=== PATIENT | female | born 1955 | race Caucasian/White ===

== ENCOUNTER → 2017-11-29 13:00 | Outpatient (CLI) | payer OTHER, SELFPAY | PROVIDERS: Family Provider Family Medicine Geriatric Medicine; PCP Family Medicine Geriatric Medicine | DX: H53.2 Diplopia (principal) | CPT/HCPCS: 36415 ==

== ENCOUNTER → 2018-01-24 15:00 | Outpatient (CLI) | payer OTHER, SELFPAY ==
[2018-01-24 17:06] LABS: Absolute Lymphocyte Count 2.14 X10^3/ul (0.83-4.51); Absolute Neutrophil Count 4.9 X10^3/uL (2.0-7.7); Basophil# 0.06 X10^3/uL; Basophil% 0.7 % (0-1); Eosinophil# 0.21 X10^3/uL; Eosinophils% 2.5 % (0-5); Hematocrit 39.4 % (37-47); Hemoglobin 13.2 g/dl (12.0-15.0); Lymphocyte # 2.14 X10^3/ul (4.0); Lymphocyte % 25.9 % (19-41); Mean Corp Hgb Conc 33.5 g/gl (32-36); Mean Corpuscular Hgb 30.4 pg (27.0-32.0); Mean Corpuscular Volume 90.8 fL (81-99); Mean Platelet Vol. 10.3 fl (6.2-12.0); Monocyte# 0.89 X10^3/uL; Monocyte% 10.8 % (0-10); Neutrophil # 4.93 X10^3/uL (2.7-7.7); Neutrophil % 59.9 % (47-70); Platelet Count 271 K/mm3 (150-450); RBC Distribution Width CV 12.8 % (11.6-14.6); RBC Distribution Width SD 42.3 fl (35.1-43.9); Red Blood Count 4.34 M/mm3 (4.2-5.4); White Blood Count 8.3 K/mm3 (4.4-11.0)
[2018-01-24 17:09] LABS: International Normalized Ratio 1.1; Prothrombin Time (Protime)PT. 13.7 SECONDS (11.7-14.9)
[2018-01-24 17:10] LABS: Partial Thromboplast Time 29.7 Seconds (24.1-36.2)
[2018-01-24 17:47] LABS: POSITIVE COUNT NO; POSITIVE DIFFERENTIAL NO; POSITIVE MORPHOLOGY NO
[2018-01-24 17:55] LABS: ALB/GLOB Ratio 1.1 RATIO (0.9-2.4); AST(SGOT) 22 U/L (15-37); Alanine Aminotransfer ALT/SGPT 27 U/L (13-56); Albumin, Serum 3.9 g/dL (3.2-5.0); Alkaline Phosphatase 98 U/L (45-117); Anion Gap 7 (5-15); BUN 23 mg/dL (7-18); BUN/Creat Ratio 26.8 RATIO (10-20); Calcium,Total 9.2 mg/dL (8.5-10.1); Chloride 106 mmol/L (98-107); Creatinine, Serum 0.86 mg/dL (0.55-1.02); EST Glomerular Filtration Rate 71 mL/min (>60); Est Glom Filt Rate - Afr Amer 85 mL/min (>60); Globulin 3.4 g/dL (2.2-4.2); Glucose 88 mg/dL (74-106); Potassium 3.7 mmol/L (3.5-5.1); Protein, Total 7.3 g/dL (6.4-8.2); Sodium Level 143 mmol/L (136-145); Thyroid Stim Hormone (TSH) 1.52 uIU/mL (0.358-3.74)
[2018-01-25 09:00] LABS: Vitamin D,25 Hydroxy 32.8 ng/mL (29.95-100.01)
[2018-01-26 09:35] LABS: Hep C Antibodies <0.1 s/co ratio (0.0-0.9)
== END ==
PROVIDERS: Family Provider Family Medicine Geriatric Medicine; PCP Family Medicine Geriatric Medicine; Visit Provider Family Medicine Geriatric Medicine
DX: E55.9 Vitamin D deficiency, unspecified (principal); R53.83 Other fatigue; Z13.89 Encounter for screening for other disorder
CPT/HCPCS: 36415; 80053; 82306; 84443; 85025; 85610; 85730; 86803

== ENCOUNTER → 2018-05-05 12:19 | Outpatient (CLI) | payer MEDICARE, BC, SELFPAY ==
--- NOTE | 2018-05-05 12:22 | BI_ITS ---
MAMMOGRAPHY - BILATERAL SCREENING REASON FOR EXAM: Female, 63 years old. Routine annual screening examination. PERTINENT HISTORY: Non-contributory. TECHNIQUE: Digital bilateral breast chriss (3D mammographic acquisition) in the CC and MLO projections. 2-D mediolateral oblique (MLO) and craniocaudad (CC) views of both breasts were obtained. CAD: Full Field Digital Mammography with Computer Added Detection was performed. COMPARISON: Comparison is made with prior study dated October 18, 2016. FINDINGS: Breast Composition: The breasts are almost entirely fatty. There are no dominant masses or suspicious calcifications. Stable appearance of the tiny nodules in the right breast. Prior ultrasound demonstrated these to be small cysts. No other significant abnormalities are identified. There has been no significant change since the prior study. BI/SCREENING MAMM (CAD), BILAT IMPRESSION: Stable bilateral screening mammogram. Yearly follow-up mammogram recommended. (A) ASSESSMENT CATEGORY: BIRADS Category 2: Benign. A letter regarding these results will be sent to the patient by the facility within 30 days. Approximately 10% of breast cancers are not detected by mammography. A normal mammogram should not delay biopsy of a clinically suspicious abnormality. [id number] Electronically Signed: Germán Tavera MD at 14:01 EDT Tel [phone], Service support ,
== END ==
PROVIDERS: Family Provider Family Medicine Geriatric Medicine; PCP Family Medicine Geriatric Medicine; Referring Provider Family Medicine Geriatric Medicine; Visit Provider Family Medicine Geriatric Medicine
DX: Z12.31 Encounter for screening mammogram for malignant neoplasm of breast (principal)
CPT/HCPCS: 77063; 77067

== ENCOUNTER → 2019-04-17 15:18 | Outpatient (CLI) | payer MEDICARE, BC, SELFPAY | PROVIDERS: Family Provider Family Medicine; PCP Family Medicine; Visit Provider Family Medicine | DX: N30.90 Cystitis, unspecified without hematuria (principal) | CPT/HCPCS: 87086; 87088; 87186 ==

== ENCOUNTER → 2019-05-07 08:53 | Outpatient (CLI) | payer MEDICARE, BC, SELFPAY ==
[2019-05-07 09:13] LABS: Absolute Lymphocyte Count 2.45 X10^3/uL (0.83-4.51); Absolute Neutrophil Count 4.6 X10^3/uL (2.0-7.7); Basophil# 0.07 X10^3/uL; Basophil% 0.9 % (0-1); Eosinophil# 0.22 X10^3/uL; Eosinophils% 2.7 % (0-5); Hematocrit 44.5 % (37-47); Hemoglobin 14.8 g/dL (12.0-15.0); Lymphocyte # 2.45 X10^3/ul (4.0); Mean Corp Hgb Conc 33.3 g/dL (32-36); Mean Corpuscular Hgb 29.8 pg (27.0-32.0); Mean Corpuscular Volume 89.7 fL (81-99); Mean Platelet Vol. 9.6 fl (6.2-12.0); Monocyte# 0.82 X10^3/uL; NRBC Flagged by Analyzer 0 % (0-5); Neutrophil # 4.59 X10^3/uL (2.7-7.7); Neutrophil % 56.3 % (47-70); Platelet Count 307 K/mm3 (150-450); RBC Distribution Width CV 12.7 % (11.6-14.6); RBC Distribution Width SD 41.5 fl (35.1-43.9); Red Blood Count 4.96 M/mm3 (4.2-5.4); White Blood Count 8.2 K/mm3 (4.4-11.0)
[2019-05-07 09:42] LABS: AST(SGOT) 17 U/L (15-37); Alanine Aminotransfer ALT/SGPT 23 U/L (13-56); Alkaline Phosphatase 112 U/L (45-117); Anion Gap 5 (5-15); BUN 20 mg/dL (7-18); BUN/Creat Ratio 26.6 RATIO (10-20); Calcium,Total 9.3 mg/dL (8.5-10.1); Chloride 107 mmol/L (98-107); Cholesterol 211 mg/dL (200); Creatinine, Serum 0.75 mg/dL (0.55-1.02); EST Glomerular Filtration Rate 82 mL/min (>60); Est Glom Filt Rate - Afr Amer 99 mL/min (>60); Globulin 3.9 g/dL (2.2-4.2); Glucose 80 mg/dL (74-106); High Density Lipoprotein 71 mg/dL; Potassium 4.2 mmol/L (3.5-5.1); Protein, Total 7.9 g/dL (6.4-8.2); Sodium Level 141 mmol/L (136-145); Triglycerides 94 mg/dL; Very Low Density Lipoprotein 19 mg/dL (5-40)
[2019-05-07 09:45] LABS: Vitamin D,25 Hydroxy 36.6 ng/mL (29.95-100.01)
== END ==
PROVIDERS: Family Provider Family Medicine; PCP Family Medicine; Referring Provider Family Medicine; Visit Provider Family Medicine
DX: Z00.00 Encounter for general adult medical examination without abnormal findings (principal); E78.5 Hyperlipidemia, unspecified; E55.9 Vitamin D deficiency, unspecified
CPT/HCPCS: 36415; 80053; 80061; 82306; 85025

== ENCOUNTER 2020-09-25 11:04 | Outpatient (RCR) | payer MEDICARE, BC, SELFPAY ==
[2020-09-25] MEDS: COVID-19 VACC, MRNA(PFIZER)/PF 30 MCG/0.3 ML SYRINGE IM (11:50)
[2020-10-16] MEDS: COVID-19 VACC, MRNA(PFIZER)/PF 30 MCG/0.3 ML SYRINGE IM (11:46)
== END 2020-09-25 23:59 ==
LOC: IMMUN 11:04
PROVIDERS: PCP Family Medicine; Visit Provider Family Medicine
DX: Z23 Encounter for immunization (principal)
CPT/HCPCS: 0001A; 0002A; 91300

== ENCOUNTER 2021-08-18 17:33 | Emergency (ER) | payer MEDICARE, BC, SELFPAY ==
[2021-08-18 17:33] VITALS: BP 215/90; PULSE 103; RESP 20; TEMP 36.8; O2SAT 98; BMI 25.4
--- NOTE | 2021-08-18 18:06 | EKG12_ITS ---
Test Reason : HYPERTENSON Blood Pressure : / mmHG Vent. Rate : 069 BPM Atrial Rate : 069 BPM P-R Int : 152 ms QRS Dur : 084 ms QT Int : 374 ms P-R-T Axes : 048 -36 032 degrees QTc Int : 400 ms Normal sinus rhythm Left axis deviation Abnormal ECG Confirmed by SUKHJINDER EVANS, BONNIE ([id number]), editor department RONALD KOWALSKI ([id number]) on 08/19/2021 9:45:19 AM Referred By: MILO Confirmed By:BONNIE SLAUGHTER MD
--- NOTE | 2021-08-18 18:06 | EDS_ITS ---
HPI History of Present Illness Chief Complaint: Hypertension Informant: patient Onset/Context/Timing Onset: Days (2-3) Timing: Continuous and Intermittent (See below) Quality: Fluttering Location: Chest Current Severity: Mild Maximum Severity: Moderate Worsened by: Nothing Relieved by: Nothing Narrative Narrative: 66-year-old healthy female presents with fluttering in her chest. She states it has basically been continuously intermittent for the last couple days. Initially she states it started with about 12 hours worth of heartburn feeling in her chest. She has not had that since then, but the palpitations have been continuous. She checked her blood pressure today and it was about 179 systolic, prompting her to become more concerned to come to the emergency department. She denies any shortness of breath, nausea, diaphoresis, radiation of any of the discomfort she had, lightheadedness or near syncope/syncope. No history of heart problems. [facility] Medical History (Updated 08/18/21 @ 22:[address] Lele Bunn MD) Inguinal hernia Medical History no medical history no medical history Home Medications amlodipine 5 mg PO DAILY #30 tab 08/18/21 [Rx Last Taken Unknown] Allergy/AdvReac Type Severity Reaction Status Date / Time No Known Allergies Allergy Verified 08/18/21 18:30 Social History Smoking Status: Never smoker [facility] ED Constitutional Constitutional ED: Denies chills or fever(s) Eyes Eyes: Denies change in vision or diplopia ENT ENT ED: Denies rhinorrhea or sore throat Cardiovascular Cardiovascular: Reports as per HPI, chest pain and palpitations Respiratory/Chest Respiratory/Chest: Denies cough or dyspnea Gastrointestinal Gastrointestinal: Denies abdominal pain, diarrhea, nausea or vomiting Genitourinary Genitourinary ED: Denies dysuria or hematuria Musculoskeletal Musculoskeletal: Denies back pain or neck pain Integumentary Denies abscess or rash Neurologic Neurologic: Denies headache(s), paresthesias or weakness Psychiatric Psychiatric: Denies anxiety or suicidal thoughts EXAM Physical Exam Const Vital Signs: 08/18/21 17:33 08/18/21 18:19 08/18/21 18:33 Temperature 98.3 F Temperature Source Temporal Pulse Rate 103 H Respiratory Rate 20 H Respiratory Effort Normal Non-Labored Respiratory Pattern Normal Blood Pressure 215/90 H Blood Pressure Mean 131 Pulse Ox 98 96 Oxygen Delivery Method Room Air Room Air 08/18/21 18:41 08/18/21 20:00 08/18/21 20:53 Temperature Temperature Source Pulse Rate 59 L 58 L 59 L Respiratory Rate 20 H 16 16 Respiratory Effort Respiratory Pattern Blood Pressure 177/72 H 135/80 H 162/77 H Blood Pressure Mean 107 98 105 Pulse Ox Oxygen Delivery Method 08/18/21 21:00 Temperature Temperature Source Pulse Rate 68 Respiratory Rate 19 H Respiratory Effort Respiratory Pattern Blood Pressure 134/77 H Blood Pressure Mean 96 Pulse Ox Oxygen Delivery Method Positive well nourished and well developed General Appearance ED: well developed and NAD HEENT Reports moist mucous membranes normocephalic and atraumatic Eyes PERRL and EOMs intact bilaterally Neck full ROM and supple Resp normal respiratory effort and clear to auscultation bilaterally Cardio regular rate, regular rhythm and no murmurs GI non-tender and non-distended Auscultation: normoactive bowel sounds Palpation: soft Back/Spine no CVA tenderness General Back: other FROM Extremity normal to inspection, no calf tenderness and no pedal edema General Extremety ED: Negative for edema, pulses abnormal or tenderness General Extremity: Negative for edema or pulses abnormal Neuro oriented x3, CN's II-XII intact bilaterally and no sensory deficits noted Sensorium / Orientation: awake and alert Motor Exam: strength 5/5 throughout Skin no rashes or lesions noted and no wounds MDM MDM MDM Narrative Medical decision making narrative: Patient was feeling fluttering in her chest throughout her earlier ED visit, there were no dysrhythmias or events on the monitor. No ectopy either. I gave her metoprolol 5 mg IV in order to help with her pressure while we were getting the work-up, this did bring her pressure down and on reevaluation she is 134/77, and her symptoms are resolved and she feels fine now. 2-hour delta troponin was obtained, her troponins are 23, 24. She is reassured stable for discharge home close to patient follow-up. Will prescribe her amlodipine to use in the meantime, I suspect her significantly elevated blood pressure was probably related to her symptoms. Lab Data Attestation: I reviewed the patient's lab results. Labs: Laboratory Results - last 24 hr 08/18/21 08/18/21 08/18/21 18:23 18:23 20:30 WBC 7.5 RBC 4.32 Hgb 13.4 Hct 39.2 MCV 90.7 MCH 31.0 MCHC 34.2 RDW Std Deviation 42.6 RDW Coeff of Rodriguez 13.0 Plt Count 262 MPV 9.8 Immature Gran % (Auto) 0.300 Neut % (Auto) 55.6 Lymph % (Auto) 32.0 Vermillion % (Auto) 9.5 Eos % (Auto) 1.9 Baso % (Auto) 0.7 Absolute Neuts (auto) 4.2 Absolute Lymphs (auto) 2.39 Nucleated RBC % 0 Sodium 140 Potassium 4.0 Chloride 106 Carbon Dioxide 27.0 Anion Gap 7 BUN 21 H Creatinine 0.76 Estim Creat Clear Calc 44.54 Est GFR (MDRD) Af Amer 97 Est GFR (MDRD) Non-Af 80 BUN/Creatinine Ratio 27.5 H Glucose 83 Calcium 8.9 Troponin I High Sens 23 24 Radiography Diagnostic Testing: Clinical Impression(s) from Imaging Studies Chest X-Ray 08/18/21 18:20 IMPRESSION: No acute radiographic abnormalities. Electronically Signed: Carlton Lewis MD at 19:57 EST , EKG Initial EKG: Attestation: I personally reviewed and interpreted this EKG as follows: Interpretation: Sinus Rhythm and No Acute Injury Pattern Comments: Left axis Prior: No Prior Discharge Plan Triage Chief Complaint: Hypertension ED Provider: Lele Bunn Dx/Rx/DC Orders Clinical Impression: Chest pain, unspecified, Accelerated hypertension Instructions: Controlling High Blood Pressure, ED Chest Pain, Uncertain Cause Prescriptions: New amlodipine 5 mg tablet 5 mg PO DAILY Qty: 30 RF: 0 Primary Care Provider: Yodit Mehta Referrals: Yodit Mehta MD [Primary Care Provider] - 5-7 Days Disposition Disposition: Home, Self Care
[2021-08-18 18:19] VITALS: O2SAT 96
--- NOTE | 2021-08-18 18:20 | RAD_ITS ---
INDICATION: chest pain EXAMINATION/TECHNIQUE: X-RAY - XR Chest 1 View COMPARISON: 04/26/2014. FINDINGS: The lungs are clear. Tortuous and calcified thoracic aorta. The heart is not enlarged. No pleural effusion or pneumothorax. Degenerative changes of the thoracic spine. RAD/Chest 1 View (Portable) IMPRESSION: No acute radiographic abnormalities. Electronically Signed: Carlton Lewis MD at 19:57 EST ,
[2021-08-18] MEDS: Metoprolol Tartrate 5 MG/5 ML Vial IV (18:30)
[2021-08-18] MEDS: Aspirin 81 MG TAB.CHEW 324 MG PO (18:30)
[2021-08-18 18:41] VITALS: BP 177/72; PULSE 59; RESP 20
[2021-08-18 18:47] LABS: Absolute Lymphocyte Count 2.39 X10^3/uL (0.83-4.51); Absolute Neutrophil Count 4.2 X10^3/uL (2.0-7.7); Basophil# 0.05 X10^3/uL; Basophil% 0.7 % (0-1); Eosinophil# 0.14 X10^3/uL; Eosinophils% 1.9 % (0-5); Hematocrit 39.2 % (37-47); Hemoglobin 13.4 g/dL (12.0-15.0); Lymphocyte # 2.39 X10^3/ul (0.83-4.51); Mean Corp Hgb Conc 34.2 g/dL (32-36); Mean Corpuscular Volume 90.7 fL (81-99); Mean Platelet Vol. 9.8 fl (6.2-12.0); Monocyte# 0.71 X10^3/uL; Monocyte% 9.5 % (0-10); NRBC Flagged by Analyzer 0 % (0-5); Neutrophil # 4.15 X10^3/uL (2.7-7.7); Neutrophil % 55.6 % (47-70); Platelet Count 262 K/mm3 (150-450); RBC Distribution Width SD 42.6 fl (35.1-43.9); Red Blood Count 4.32 M/mm3 (4.2-5.4); White Blood Count 7.5 K/mm3 (4.4-11.0)
[2021-08-18 18:51] LABS: Anion Gap 7 (5-15); BUN 21 mg/dL (7-18); BUN/Creat Ratio 27.5 RATIO (10-20); Calcium,Total 8.9 mg/dL (8.5-10.1); Chloride 106 mmol/L (98-107); Creatinine, Serum 0.76 mg/dL (0.55-1.02); EST Glomerular Filtration Rate 80 mL/min (>60); Est Glom Filt Rate - Afr Amer 97 mL/min (>60); Estimated Creatinine Clearance 44.54 ml/min; Glucose 83 mg/dL (74-106); Sodium Level 140 mmol/L (136-145); Troponin-I HS 23 pg/mL (3.0-54.0)
[2021-08-18 20:00] VITALS: BP 135/80; PULSE 58; RESP 16
[2021-08-18 20:53] VITALS: BP 162/77; PULSE 59; RESP 16
[2021-08-18 21:00] VITALS: BP 134/77; PULSE 68; RESP 19
--- NOTE | 2021-08-18 22:09 | ED.RN ---
Call to lab after 1.5hr of waiting for repeat Troponin level. Was advised the sample never ran and it was processing now.
[2021-08-18 22:24] LABS: Troponin-I HS 24 pg/mL (3.0-54.0)
--- NOTE | 2021-08-19 11:30 | CASEMGMT ---
[facility] ED follow-up: Date of ER visit: 08/18/2021 Presenting ER complaint: hypertension JOSE CARLOS KELLY placed call to patient's telephone number listed on demographics- patient answered. Patient reports getting there but not feeling 100% better yet. Patient monitoring BP at home and reports 180/90 this morning. Patient has not received prescription medication from pharmacy yet but daughter is planning to picker and sorter load and unload medication today. PCP follow up appointment scheduled for tomorrow, per patient. Patient instructed to keep BP log for follow-up appointment and limit salt intake. Patient reports she has always been very healthy and previously took no prescription medications but admits to recent increased stress due to 's in April 2021 and mother's in June 2021. JOSE CARLOS KELLY offered support. Patient asks if she should take Rx medication prior to tomorrow's PCP follow-up appointment, Is it okay for that to be in my system when I go? JOSE CARLOS KELLY instructed patient to take medicated as ordered, informing patient that elevated BP readings documented during ER stay, as well as home readings, available for PCP to review. Voices understanding. Denies further questions or concerns. JOSE CARLOS Murphy CM
== END 2021-08-18 22:40 | disposition home or self-care (01) ==
PROVIDERS: Emergency Provider Emergency Medicine; PCP Family Medicine; Visit Provider Emergency Medicine
DX: R07.9 Chest pain, unspecified (principal); I10 Essential (primary) hypertension; R00.2 Palpitations
CPT/HCPCS: 71045; 80048; 84484; 85025; 93005; 96374; 99285; A4216

== ENCOUNTER 2021-09-11 12:22 | Outpatient (CLI) | payer MEDICARE, BC, SELFPAY ==
--- NOTE | 2021-09-11 12:25 | BI_ITS ---
MAMMOGRAPHY - BILATERAL SCREENING REASON FOR EXAM: Female, 66 years old. Routine annual screening examination. PERTINENT HISTORY: Mother with breast cancer. TECHNIQUE: Digital bilateral breast josue (3D mammographic acquisition) in the CC and MLO projections. 2-D mediolateral oblique (MLO) and craniocaudad (CC) views of both breasts were obtained. CAD: Full Field Digital Mammography with Computer Added Detection was performed. COMPARISON: Comparison is made with prior study 05/05/2018 and 10/18/2016. FINDINGS: Breast Composition: The breasts are almost entirely fatty. There are no dominant masses or suspicious calcifications. Stable appearance of the tiny nodular densities in the right breast. Prior ultrasound demonstrated these to be small cysts. No other significant abnormalities are identified. There has been no significant change since the prior study. BI/SCRN MAMM (CAD)W/JOSUE BILAT IMPRESSION: Stable bilateral screening mammogram. Yearly follow-up mammogram recommended. (A) ASSESSMENT CATEGORY: BIRADS Category 2: Benign. A letter regarding these results will be sent to the patient by the facility within 30 days. Approximately 10% of breast cancers are not detected by mammography. A normal mammogram should not delay biopsy of a clinically suspicious abnormality. [id number] Electronically Signed: Germán Tavera MD at 14:44 EST ,
== END 2021-09-11 23:59 | disposition home or self-care (01) ==
LOC: OPBI 12:23
PROVIDERS: PCP Family Medicine; Visit Provider Family Medicine
DX: Z12.31 Encounter for screening mammogram for malignant neoplasm of breast (principal); Z80.3 Family history of malignant neoplasm of breast
CPT/HCPCS: 77063; 77067

== ENCOUNTER 2021-09-25 09:52 | Outpatient (CLI) | payer MEDICARE, BC, SELFPAY ==
[2021-09-25 12:50] LABS: Cholesterol 189 mg/dL (200); High Density Lipoprotein 67 mg/dL; Triglycerides 94 mg/dL; Very Low Density Lipoprotein 19 mg/dL (5-40)
== END 2021-09-25 23:59 | disposition home or self-care (01) ==
LOC: MTLAB 09:53
PROVIDERS: PCP Family Medicine; Referring Provider Family Medicine; Visit Provider Family Medicine
DX: I10 Essential (primary) hypertension (principal)
CPT/HCPCS: 36415; 80061

== ENCOUNTER → 2022-11-12 | Outpatient (CLI) | payer MEDICARE, BC, SELFPAY ==
--- NOTE | 2022-11-12 12:40 | BI_ITS ---
MAMMOGRAPHY - BILATERAL SCREENING REASON FOR EXAM: Female, 67 years old. Routine annual screening examination. PERTINENT HISTORY: Mother with breast cancer. TECHNIQUE: Digital bilateral breast josue (3D mammographic acquisition) in the CC and MLO projections. 2-D mediolateral oblique (MLO) and craniocaudad (CC) views of both breasts were obtained. CAD: Full Field Digital Mammography with Computer Added Detection was performed. COMPARISON: Comparison is made with prior examination dated September 11, 2021 and May 05, 2018. FINDINGS: Breast Composition: The breasts are almost entirely fatty. There are no dominant masses or suspicious calcifications. Stable 2 mm nodule in the retroareolar region of the right breast. Stable small benign appearing bilateral axillary lymph nodes. No other significant abnormalities are identified. There has been no significant change since the prior study. BI/SCRN MAMM (CAD)W/JOSUE BILAT IMPRESSION: Stable bilateral screening mammogram. Yearly follow-up mammogram recommended. (A) ASSESSMENT CATEGORY: BIRADS Category 2: Benign. A letter regarding these results will be sent to the patient by the facility within 30 days. Approximately 10% of breast cancers are not detected by mammography. A normal mammogram should not delay biopsy of a clinically suspicious abnormality. [id number] Electronically Signed: Germán Tavera MD at 14:12 EDT ,
== END | disposition home or self-care (01) ==
LOC: OPBI 12:39
PROVIDERS: PCP Family Medicine; Referring Provider Family Medicine; Visit Provider Family Medicine
DX: Z12.31 Encounter for screening mammogram for malignant neoplasm of breast (principal); Z80.3 Family history of malignant neoplasm of breast
CPT/HCPCS: 77063; 77067

== ENCOUNTER → 2023-04-04 | Outpatient (CLI) | payer MEDICARE, BC, SELFPAY ==
[2023-04-04 12:04] LABS: Absolute Lymphocyte Count 1.84 X10^3/uL (0.83-4.51); Absolute Neutrophil Count 4.3 X10^3/uL (2.0-7.7); Basophil# 0.06 X10^3/uL; Basophil% 0.9 % (0-1); Eosinophil# 0.09 X10^3/uL; Eosinophils% 1.3 % (0-5); Hematocrit 42.4 % (37-47); Hemoglobin 13.6 g/dL (12.0-15.0); Lymphocyte # 1.84 X10^3/ul (0.83-4.51); Lymphocyte % 26.6 % (19-41); Mean Corp Hgb Conc 32.1 g/dL (32-36); Mean Corpuscular Hgb 29.4 pg (27.0-32.0); Mean Corpuscular Volume 91.6 fL (81-99); Mean Platelet Vol. 10.2 fl (6.2-12.0); Monocyte# 0.63 X10^3/uL; Monocyte% 9.1 % (0-10); NRBC Flagged by Analyzer 0 % (0-5); Neutrophil # 4.29 X10^3/uL (2.7-7.7); Neutrophil % 61.8 % (47-70); Platelet Count 298 K/mm3 (150-450); RBC Distribution Width CV 13.2 % (11.6-14.6); RBC Distribution Width SD 44.3 fl (35.1-43.9); Red Blood Count 4.63 M/mm3 (4.2-5.4); White Blood Count 6.9 K/mm3 (4.4-11.0)
[2023-04-04 12:33] LABS: AST(SGOT) 15 U/L (15-37); Alanine Aminotransfer ALT/SGPT 20 U/L (13-56); Albumin, Serum 3.7 g/dL (3.2-5.0); Alkaline Phosphatase 108 U/L (45-117); Anion Gap 2 (5-15); BUN 18 mg/dL (7-18); BUN/Creat Ratio 25.7 RATIO (10-20); Calcium,Total 9.3 mg/dL (8.5-10.1); Chloride 109 mmol/L (98-107); Cholesterol 188 mg/dL (200); EST Glomerular Filtration Rate 88 mL/min (>60); Est Glom Filt Rate - Afr Amer 106 mL/min (>60); Globulin 3.7 g/dL (2.2-4.2); Glucose 80 mg/dL (74-106); High Density Lipoprotein 70 mg/dL; Potassium 4.3 mmol/L (3.5-5.1); Protein, Total 7.4 g/dL (6.4-8.2); Sodium Level 140 mmol/L (136-145); Triglycerides 94 mg/dL; Very Low Density Lipoprotein 19 mg/dL (5-40)
[2023-04-04 18:35] LABS: Vitamin D,25 Hydroxy 36.6 ng/mL
== END | disposition home or self-care (01) ==
PROVIDERS: PCP Family Medicine; Referring Provider Family Medicine; Visit Provider Family Medicine
DX: Z00.00 Encounter for general adult medical examination without abnormal findings (principal); I10 Essential (primary) hypertension; E55.9 Vitamin D deficiency, unspecified
CPT/HCPCS: 36415; 80053; 80061; 82306; 85025

== ENCOUNTER → 2024-02-09 | Outpatient (CLI) | payer MEDICARE, BC, SELFPAY ==
--- NOTE | 2024-02-09 15:37 | US_ITS ---
STUDY: ULTRASOUND OF THE FEMALE PELVIS - COMPLETE REASON FOR EXAM: Female, 68 years old. UTERINE PROLAPSE LMP: Patient is postmenopausal. TECHNIQUE: Transabdominal TECHNICAL QUALITY: Adequate. COMPARISON: None. FINDINGS: The uterus is anteverted and is in a midline position. The uterus measures 7.7 cm x 5.3 cm x 3.6 cm. Normal uterine cervix. The endometrium is slightly thickened and measures 4 mm in thickness, and is hyperechoic. There is no demonstrated endometrial mass. There is no demonstrated myometrial mass. I.U.D. - The patient does not have an I.U.D. The right ovary is visualized. The right ovary measures 2.8 cm x 3.5 cm x 1.9 cm. There is no right ovarian cyst or ovarian mass. There is no visualized right adnexal mass or complex lesion. There is normal arterial and normal venous vascularity. The left ovary is non-visualized. There is no fluid in the cul-de-sac. The pre void volume of the bladder was 298 ml. US/Pelvic (Non ) IMPRESSION: Mild endometrial thickening. Electronically Signed: Germán Tavera MD at 14:05 EDT ,
== END | disposition home or self-care (01) ==
LOC: US 15:35
PROVIDERS: PCP Family Medicine; Referring Provider Family Medicine; Visit Provider Family Medicine
DX: N81.4 Uterovaginal prolapse, unspecified (principal); Z78.0 Asymptomatic menopausal state
CPT/HCPCS: 76856

== ENCOUNTER → 2025-04-05 | Outpatient (CLI) | payer MEDICARE, BC, SELFPAY ==
--- NOTE | 2025-04-05 10:19 | BI_ITS ---
EXAM: SCRN MAMM (CAD)W/JOSUE BILAT DATE: 04/05/2025 CLINICAL HISTORY: F, Age 70 y/o , SCREENING TECHNIQUE: Procedure Code: [id number] Modality: MG Procedure: SCRN MAMM (CAD)W/JOSUE BILAT COMPARISON: Prior exam(s) were compared FINDINGS: TISSUE DENSITY: The breasts are heterogeneously dense, which may obscure small masses. Bilateral Breast Mammographic Findings: No suspicious masses, calcifications or other abnormalities are identified. BI/SCRN MAMM (CAD)W/JOSUE BILAT IMPRESSION: No mammographic evidence of malignancy in either breast OVERALL FINAL ASSESSMENT BI-RADS 1: NEGATIVE. RECOMMENDATION: Routine annual follow-up in 1 Year Additional Recommendation none A letter with findings and recommendations will be mailed to the patient. Reading Location: [id number]
== END | disposition home or self-care (01) ==
LOC: OPBI 10:16
PROVIDERS: PCP Family Medicine; Referring Provider Family Medicine; Visit Provider Family Medicine
DX: Z12.31 Encounter for screening mammogram for malignant neoplasm of breast (principal)
CPT/HCPCS: 77063; 77067

== ENCOUNTER → 2025-05-10 | Outpatient (CLI) | payer MEDICARE, BC, SELFPAY ==
[2025-05-10 10:38] LABS: Hematocrit 42.1 % (37-47); Hemoglobin 14.5 g/dL (12.0-15.0); Immature Granulocytes Count 0.010 X10^3/uL (0.0-0.0); Mean Corp Hgb Conc 34.4 g/dL (32-36); Mean Corpuscular Volume 90.0 fL (81-99); Mean Platelet Vol. 10.1 fl (6.2-12.0); NRBC Flagged by Analyzer 0 % (0-5); Platelet Count 297 K/mm3 (150-450); RBC Distribution Width CV 12.8 % (11.6-14.6); RBC Distribution Width SD 41.7 fl (35.1-43.9); Red Blood Count 4.68 M/mm3 (4.2-5.4); White Blood Count 7.1 K/mm3 (4.4-11.0)
[2025-05-10 11:23] LABS: AST(SGOT) 17 U/L (<=31); Alanine Aminotransfer ALT/SGPT 11 U/L (<=34); Albumin, Serum 4.2 g/dL (3.4-4.8); Alkaline Phosphatase 96 U/L (35-104); Anion Gap 9 (5-15); BUN 20 mg/dL (4-19); BUN/Creat Ratio 30.3 RATIO (10-20); Calcium,Total 9.7 mg/dL (7.6-11.0); Carbon Dioxide 27.1 mmol/L (21.0-32.0); Chloride 105 mmol/L (98-108); Cholesterol 196 mg/dL (<=200); Globulin 2.9 g/dL (2.2-4.2); Glucose 78 mg/dL (70-99); Low Density Lipoprotein Calc. 115 mg/dL; Potassium 4.7 mmol/L (3.3-5.1); Triglycerides 89 mg/dL; Very Low Density Lipoprotein 18 mg/dL (5-40); Vitamin D,25 Hydroxy 30.1 ng/mL (30-100); cholesterol:hdl ratio screen 3.02
== END | disposition home or self-care (01) ==
PROVIDERS: PCP Family Medicine; Referring Provider Family Medicine; Visit Provider Family Medicine
DX: Z00.00 Encounter for general adult medical examination without abnormal findings (principal); I10 Essential (primary) hypertension; E55.9 Vitamin D deficiency, unspecified
CPT/HCPCS: 36415; 80053; 80061; 82306; 85025